=== PATIENT | male | born 1955 | race Caucasian/White ===

== ENCOUNTER → 2023-05-13 06:31 | Outpatient (REF) | payer MEDICARE, OTHER, SELFPAY | LOC: MRI 06:31 | PROVIDERS: ATTENDING PHYSICIAN Orthopaedic Surgery; FAMILY PHYSICIAN Internal Medicine | DX: M54.2 Cervicalgia (principal); M25.512 Pain in left shoulder | CPT/HCPCS: 72141; 73221 ==